=== PATIENT | female | born 1970 | race African-American/Black ===

== ENCOUNTER 2020-10-30 08:42 | Emergency (ER) | payer MEDICAID, SELFPAY ==
[~2020-10-30] VITALS: Ht 172.7 cm; Wt 80.0 kg
--- NOTE | 2020-10-30 08:57 | NUR ---
PT BIB EMS FOR ABNORMAL VB. PT HAD PERIOD FOR 5 DAYS. INCREASE BLEEDING W CLOTS. EXPERIENCED FIRST HOT FLASH. DNEIES CP, SOB, N/V OR DIZZINESS. PT BEEN OFF BC FOR 3 MONTHS. HX OF ANEMIA. GIVEN 4 MG ZOFRAN, 100 FENT BY EMS
[2020-10-30 09:10] LABS: BASOPHILS % (AUTO) 1 % (0-1); EOSINOPHILS % (AUTO) 1 % (1-7); LYMPHOCYTES % (AUTO) 25 % (22-44); MEAN CORPUSCULAR HEMOGLOBIN 20.3 pg (27.0-34.8); MEAN CORPUSCULAR HGB CONC 31.2 g/dL (32.4-35.8); MEAN PLATELET VOLUME 7.7 fL (7.4-10.4); MONOCYTES % (AUTO) 6 % (2-9); NEUTROPHILS % (AUTO) 68 % (42-75); PLATELET COUNT 386 x10^3/uL (130-400); RED BLOOD COUNT 2.77 x10^6/uL (3.82-5.3); RED CELL DISTRIBUTION WIDTH 20.3 % (9.6-15.2)
[2020-10-30 09:22] LABS: ALBUMIN 3.3 g/dL (3.4-5.0); ANION GAP 8 mmol/L (5-15); CALCIUM 8.3 mg/dL (8.5-10.1); CHLORIDE 115 mmol/L (98-107); CREATININE 0.93 mg/dL (0.55-1.02)
[2020-10-30 09:31] LABS: MD MORPH REVIEW ONLY
[2020-10-30 09:40] LABS: <PLATELET ESTIMATE> ADEQUATE; <PLT MORPHOLOGY> NORMAL PLT MORPH; ANISOCYTOSIS 2+; HYPOCHROMIA 2+; MICROCYTOSIS 2+; POLYCHROMASIA 1+; TEAR DROPS 1+
[2020-10-30 09:41] LABS: OVALOCYTES 1+
--- NOTE | 2020-10-30 09:51 | NUR ---
PT IN [place].
--- NOTE | 2020-10-30 10:04 | NUR ---
BREAK RN: PT REMAINS IN [place].
[2020-10-30 11:26] VITALS: BP 119/63
--- NOTE | 2020-10-30 11:28 | NUR ---
PT RESTING, BLOOD TRANSFUSION STARTED. PT TOLERATING, NO S/S OF REACTION. VSS
[2020-10-30 11:40] VITALS: BP 112/78
--- NOTE | 2020-10-30 12:39 | NUR ---
SECOND UNIT OF [facility] REQUESTED FROM BLOOD BANK. FIRST UNIT COMPLETE. PT TOLERATED, NO CO S/S OF TRANSFUSION REACTION
[2020-10-30 12:40] VITALS: BP 118/64
[2020-10-30 12:47] VITALS: BP 120/66
[2020-10-30 13:02] VITALS: BP 134/68
[2020-10-30 13:41] VITALS: BP 126/74
--- NOTE | 2020-10-30 13:42 | NUR ---
2ND UNIT COMPLETED. PT DENIES S/S OF REACTION, TOLERATED WELL. READY FOR DC
--- NOTE | 2020-10-30 13:49 | NUR ---
Patient/Caregiver given discharge instructions and they have confirmed that they understand the instructions. Patient ambulatory with steady gait.
== END 2020-10-30 13:52 | disposition home or self-care (01) ==
LOC: ED 10:34
DX: D62 Acute posthemorrhagic anemia (principal); D50.8 Other iron deficiency anemias; N93.9 Abnormal uterine and vaginal bleeding, unspecified
CPT/HCPCS: 36415; 36430; 76830; 80048; 82040; 82728; 83540; 83550; 84466; 84703; 85025; 86850; 86900; 86923; 99285; P9016; 99291

== ENCOUNTER 2021-01-12 17:23 | Emergency (ER) | payer MEDICAID ==
[~2021-01-12] VITALS: Ht 172.7 cm; Wt 84.7 kg
--- NOTE | 2021-01-12 17:28 | NUR ---
called for pt. pt not in lobby
--- NOTE | 2021-01-12 17:54 | NUR ---
PT IS HERE D/T HEAVY BLEEDING R/T MENSES WHERE SHE IS CHANGING HER PAD FREQUENTLY. WAS HERE IN [place] DX WITH Addendum: 01/12/21 at 1755 by MAXIMO [employer]AR[employer].
--- NOTE | 2021-01-12 17:58 | NUR ---
PT REPORTS SHE HAS TAMPON IN PLACE, SIZE 5 PAD AND IT WILL BE SOAKED IN APPROX 30 MINUTRES. THIS HAS BEEN HAPPENING SINCE LAST NIGHT.
[2021-01-12 18:30] LABS: BASOPHILS % (AUTO) 1 % (0-1); EOSINOPHILS % (AUTO) 2 % (1-7); LYMPHOCYTES % (AUTO) 32 % (22-44); MEAN CORPUSCULAR HGB CONC 33.5 g/dL (32.4-35.8); MEAN PLATELET VOLUME 8.5 fL (7.4-10.4); MONOCYTES % (AUTO) 8 % (2-9); NEUTROPHILS % (AUTO) 57 % (42-75); PLATELET COUNT 226 x10^3/uL (130-400); RED BLOOD COUNT 3.42 x10^6/uL (3.82-5.3); RED CELL DISTRIBUTION WIDTH 15.7 % (9.6-15.2)
[2021-01-12] MEDS ORDERED: SODIUM CHLORIDE FLUSH 10ML SYR IVF ONE (18:30)
[2021-01-12 18:32] LABS: MD NO
[2021-01-12 18:41] LABS: ALBUMIN 3.1 g/dL (3.4-5.0); CALCIUM 8.1 mg/dL (8.5-10.1); CREATININE 0.78 mg/dL (0.55-1.02)
[2021-01-12 18:49] LABS: ANION GAP 5 mmol/L (5-15); CHLORIDE 113 mmol/L (98-107)
--- NOTE | 2021-01-12 19:14 | NUR ---
PT RESTING COMFORTABLY IN [facility]. CALL LIGHT WITHIN REACH.
[2021-01-12 20:21] VITALS: BP 148/78
--- NOTE | 2021-01-12 20:21 | NUR ---
DISCHARGE INSTRUCTIONS REVIEWED WITH PT. ALL QUESTIONS ANSWERED AT THIS TIME.
== END 2021-01-12 20:32 | disposition home or self-care (01) ==
LOC: ED 18:30
DX: N92.1 Excessive and frequent menstruation with irregular cycle (principal); N93.8 Other specified abnormal uterine and vaginal bleeding
CPT/HCPCS: 36415; 80048; 82040; 84703; 85025; 86850; 86900; 99283